=== PATIENT | female | born 1955 | race Two or more races ===

== ENCOUNTER 2020-09-24 11:17 | Inpatient (IN) | payer OTHER ==
[~2020-09-24] VITALS: Ht 162.6 cm; Wt 81.0 kg
[2020-09-24 13:38] LABS: Basophils # (auto) 0 10 ^3/uL (0-0.2); Basophils % (auto) 0.2 % (0.0-2.0); Eosinophils # (auto) 0.1 10 ^3/uL (0-0.8); Eosinophils % (auto) 0.8 % (0.0-7.0); Hematocrit 39.8 % (36.0-46.0); Hemoglobin 13.8 g/dL (12.2-16.2); Lymphocytes # (auto) 1.3 10 ^3/uL (0.4-5.4); Lymphocytes % (auto) 16.4 % (10.0-50.0); Mean Corpuscular Hgb Conc. 34.5 g/dL (32.0-36.0); Mean Corpuscular Volume 89.7 fL (80.0-100.0); Monocytes # (auto) 0.9 10 ^3/uL (0-1.3); Monocytes % (auto) 11.5 % (0.0-12.0); Neutrophils # (auto) 5.5 10 ^3/uL (1.6-8.6); Neutrophils % (auto) 71.1 % (37.0-80.0); Nucleated Red Blood Cells % 0.1 %; Platelet Count (auto) 331 10^3/uL (140-450); Red Blood Cells 4.44 10^6/uL (4.0-5.20); Red Cell Distribution Width 13.2 % (11.8-14.3); White Blood Cell 7.7 10^3/uL (4.4-10.8)
[2020-09-24 14:17] LABS: Albumin 2.7 g/dL (3.4-5.0); BUN/Creatinine Ratio 7.6; Calcium 8.1 mg/dL (8.5-10.1); Potassium 3.4 mmol/L (3.5-5.1)
[2020-09-24 14:20] LABS: Bilirubin, Total 0.8 mg/dL (0.2-1.0); Total Protein 6.9 g/dL (6.4-8.2)
[2020-09-24] MEDS ORDERED: REMDESIVIR PER PHARMACY 0 ML IV SCH (14:30)
[2020-09-24] MEDS ORDERED: NITROGLYCERIN 0.4 MG SL TAB SL PRN (14:30)
[2020-09-24] MEDS ORDERED: MORPHINE SULF INJ 2 MG/ML SYRINGE 1ML IV PRN ×2 (14:30→14:45)
[2020-09-24] MEDS ORDERED: TEMAZEPAM 15 MG CAP PO PRN (14:45)
[2020-09-24] MEDS ORDERED: DEXTROSE (50%) 50ML SYRG IV PRN (14:45)
[2020-09-24] MEDS ORDERED: ONDANSETRON HCL 4 MG/2 ML VIAL IV PRN (14:45)
[2020-09-24] MEDS ORDERED: POTASSIUM EFFERVESENT TAB 25 MEQ PO ONE (14:45)
[2020-09-24] MEDS ORDERED: LACTULOSE 20Gm/30ML SOLN PO PRN (14:45)
[2020-09-24] MEDS ORDERED: ACETAMINOPHEN 500 MG TAB PO PRN (14:45)
[2020-09-24] MEDS ORDERED: traMADol HCL 50 MG TAB PO PRN (14:45)
[2020-09-24] MEDS ORDERED: ONDA-144 PO (14:49)
[2020-09-24] MEDS ORDERED: LISI-275 PO (14:49)
[2020-09-24] MEDS ORDERED: CYAN100T7 PO (14:51)
[2020-09-24] MEDS ORDERED: MULT-1018 PO (14:51)
[2020-09-24] MEDS ORDERED: GUAI600T23 PO (14:51)
[2020-09-24 14:54] LABS: CRP High Sensitivity 6.93 mg/dL (< 0.3)
[2020-09-25] MEDS ORDERED: ONDANSETRON ODT 4 MG TAB PO ONE (05:45)
[2020-09-25 06:20] LABS: Basophils # (auto) 0 10 ^3/uL (0-0.2); Basophils % (auto) 0.3 % (0.0-2.0); Eosinophils # (auto) 0.1 10 ^3/uL (0-0.8); Eosinophils % (auto) 1.7 % (0.0-7.0); Hematocrit 40.5 % (36.0-46.0); Hemoglobin 13.2 g/dL (12.2-16.2); Lymphocytes % (auto) 14.9 % (10.0-50.0); Mean Corpuscular Hemoglobin 29.6 pg (28.0-32.0); Mean Corpuscular Hgb Conc. 32.7 g/dL (32.0-36.0); Mean Corpuscular Volume 90.7 fL (80.0-100.0); Monocytes # (auto) 0.7 10 ^3/uL (0-1.3); Monocytes % (auto) 10.4 % (0.0-12.0); Neutrophils # (auto) 5.1 10 ^3/uL (1.6-8.6); Neutrophils % (auto) 72.7 % (37.0-80.0); Platelet Count (auto) 404 10^3/uL (140-450); Red Blood Cells 4.46 10^6/uL (4.0-5.20); Red Cell Distribution Width 13.5 % (11.8-14.3)
[2020-09-25 06:43] LABS: Potassium 3.3 mmol/L (3.5-5.1)
[2020-09-25 06:49] LABS: BUN/Creatinine Ratio 9.3
[2020-09-25 06:50] LABS: Albumin 2.7 g/dL (3.4-5.0); Bilirubin, Total 0.9 mg/dL (0.2-1.0); Calcium 8.4 mg/dL (8.5-10.1); Total Protein 7.2 g/dL (6.4-8.2)
[2020-09-25] MEDS: ACCU-CHEK COMFORT CURVE STRIP VI SCH ×4 (08:00→18:19)
[2020-09-25] MEDS ORDERED: levoFLOXacin 500MG 100 ML IV SCH (08:00)
[2020-09-25] MEDS ORDERED: DexAMETHasone SOD PHOS 10MG/1ML VIAL INJ IV SCH (10:00)
[2020-09-25] MEDS ORDERED: ZINC SULFATE 220mg CAP or TAB PO SCH (10:00)
[2020-09-25] MEDS: ENOXAPARIN SOD 40 MG/0.4 ML SYRINGE SC SCH ×3 (10:54→21:56)
[2020-09-25] MEDS: CHOLECALCIFEROL (VITD3) 2,000 UNIT CAP PO SCH (11:01)
[2020-09-25] MEDS: ASCORBIC ACID 1,000 MG TAB PO SCH (11:01)
[2020-09-25] MEDS: AZITHROMYCIN 500MG/D5WorNS 250ml IV SCH (11:01)
[2020-09-25] MEDS: ZINC SULFATE 220mg CAP or TAB PO SCH (11:01)
[2020-09-25] MEDS ORDERED: POTASSIUM EFFERVESENT TAB 25 MEQ PO ONE ×2 (11:30)
[2020-09-25] MEDS ORDERED: cefTRIAXone 1GM/50ML D5W 50 ML IV ONE (11:30)
[2020-09-25] MEDS ORDERED: FUROSEMIDE 20 MG/2 ML VIAL IV ONE (11:30)
[2020-09-25] MEDS: DexAMETHasone SOD PHOS 10MG/1ML VIAL INJ IV SCH (11:32)
[2020-09-25] MEDS: BUDESONIDE (INHALATION) 180 MCG IH IN SCH ×2 (13:02→22:27)
[2020-09-25] MEDS ORDERED: REMDESIVIR 200 MG in NS 210ml LOADING DOSE ADULT IV ONE (15:00)
--- NOTE | 2020-09-25 15:20 | NUR ---
Report called in from ER Report called in by ER. Patient arrived shortly after via wheelchair with all belongings with no S/S of SOB or respiratory distress to RM 220B. Patient on 2L NC. HR 78, RR 18, BP 128/67, O2 96%. Instructed on POC and to call for assist PRN. Patient verbalized understanding. Will continue to monitor for changes Q1hr and PRN.
--- NOTE | 2020-09-25 16:51 | NUR ---
Patient in the ER Addendum: 09/25/20 at 1652 by Shae Beal RN RN Amended: Links added.
--- NOTE | 2020-09-25 17:27 | NUR ---
Remdesivir Pre-treatment vitals HR 86, RR 14, BP 138/74, Temp 98.3, O2 97%. Addendum: 09/26/20 at 0732 by Shae Beal RN RN Loading Dose
--- NOTE | 2020-09-25 17:59 | NUR ---
1742 vitals HR, 90, RR 15, BP 127/75, Temp 97.9, O2 95%.
--- NOTE | 2020-09-25 19:30 | NUR ---
Opening Shift Note Assumed care of patient, awake and alert. No S/S of distress/SOB or pain. Pt on 2L nasal cannula saturating at 94% at this time. Safety measures in place, bed in lowest locked position, bed rails raised x2, call light within reach. All needs addressed at this time. Instructed on POC and to call for assist PRN, will continue to monitor for changes Q1hr and PRN.
[2020-09-25 22:04] VITALS: BP 115/67
[2020-09-25] MEDS: ALBUTEROL SULF HFA 90MCG INH 200DOSE IN PRN (22:28)
[2020-09-26 05:00] VITALS: BP 121/74
[2020-09-26 07:06] LABS: Basophils # (auto) 0 10 ^3/uL (0-0.2); Basophils % (auto) 0.2 % (0.0-2.0); Eosinophils # (auto) 0 10 ^3/uL (0-0.8); Lymphocytes % (auto) 17.8 % (10.0-50.0); White Blood Cell 5.6 10^3/uL (4.4-10.8)
[2020-09-26 07:09] LABS: Hematocrit 38.6 % (36.0-46.0); Hemoglobin 12.9 g/dL (12.2-16.2); Mean Corpuscular Hemoglobin 30.1 pg (28.0-32.0); Mean Corpuscular Hgb Conc. 33.5 g/dL (32.0-36.0); Mean Corpuscular Volume 89.8 fL (80.0-100.0); Monocytes # (auto) 0.6 10 ^3/uL (0-1.3); Nucleated Red Blood Cells % 0.1 %; Platelet Count (auto) 516 10^3/uL (140-450); Red Cell Distribution Width 13.4 % (11.8-14.3)
[2020-09-26] MEDS: ALBUTEROL SULF HFA 90MCG INH 200DOSE IN PRN (07:10)
[2020-09-26] MEDS: BUDESONIDE (INHALATION) 180 MCG IH IN SCH ×2 (07:10→21:39)
--- NOTE | 2020-09-26 07:10 | NUR ---
Respiratory note: Please disregard charting for nebulizer treatment. Treatment was given at 0710.
[2020-09-26 07:34] LABS: Albumin 2.7 g/dL (3.4-5.0); Calcium 8.9 mg/dL (8.5-10.1); Potassium 3.6 mmol/L (3.5-5.1)
[2020-09-26 07:37] LABS: Bilirubin, Total 0.6 mg/dL (0.2-1.0); Total Protein 6.8 g/dL (6.4-8.2)
--- NOTE | 2020-09-26 07:45 | NUR ---
Opening Shift Note Assumed care of patient, awake and alert. A/O X 4. No S/S of distress/SOB or pain. Patient on 2L NC. Instructed on POC and to call for assist PRN. Patient verbalized understanding. Safety measures are in place and the call light is within reach of the patient. Will continue to monitor for changes Q1hr and PRN.
[2020-09-26 09:00] VITALS: BP 121/72
[2020-09-26] MEDS: cefTRIAXone 1GM/50ML D5W 50 ML IV SCH (09:30)
[2020-09-26] MEDS: CHOLECALCIFEROL (VITD3) 2,000 UNIT CAP PO SCH (10:00)
[2020-09-26] MEDS: FUROSEMIDE 20 MG/2 ML VIAL IV SCH (10:00)
[2020-09-26] MEDS: ASCORBIC ACID 1,000 MG TAB PO SCH (10:00)
[2020-09-26] MEDS: AZITHROMYCIN 500MG/D5WorNS 250ml IV SCH (10:00)
[2020-09-26] MEDS: POTASSIUM EFFERVESENT TAB 25 MEQ PO SCH (10:00)
[2020-09-26] MEDS: DexAMETHasone SOD PHOS 10MG/1ML VIAL INJ IV SCH (10:00)
[2020-09-26] MEDS: ENOXAPARIN SOD 40 MG/0.4 ML SYRINGE SC SCH ×2 (10:00→21:25)
[2020-09-26] MEDS: ZINC SULFATE 220mg CAP or TAB PO SCH (10:00)
[2020-09-26 13:00] VITALS: BP 115/63
--- NOTE | 2020-09-26 13:43 | NUR ---
Report given, transfer of care Report given to Kandi WISE for a transfer of care.
--- NOTE | 2020-09-26 13:43 | NUR ---
Received Transfer of Care Received transfer of care from BILLIE Lynn. Pt round performed and pt status is stable and pt is resting comfortably. Pt is on 2L/min nc, assumed care of patient, pt is awake and A&OX4. No S/S of distress/SOB or pain. Instructed on POC and to call for assist PRN, call light within reach. Bed is locked, in lowest position, side rails upX2. Will continue to monitor for changes Q1hr and PRN.
[2020-09-26] MEDS: REMDESIVIR 100 MG in SODIUM CHL 0.9% 250 ML IV SCH (15:00)
--- NOTE | 2020-09-26 18:00 | NUR ---
Remdesivir Infusion Pre Remdesivir VS: BP 113/61, 73 NV, 92%, after 15 min infusion: BP 113/64, 68 NV, 93%, post infusion: BP 121/65, 69 NV, 93%. Patient tolerated the medication well.
--- NOTE | 2020-09-26 19:30 | NUR ---
Opening Shift Note Assumed care of patient, awake and alert. No S/S of distress/SOB or pain. Instructed on POC and to call for assist PRN, will continue to monitor for changes Q1hr and PRN.
[2020-09-26 22:00] VITALS: BP 114/63
[2020-09-27] MEDS: ALBUTEROL SULF HFA 90MCG INH 200DOSE IN PRN ×3 (00:05→19:58)
[2020-09-27 05:00] VITALS: BP 122/61
--- NOTE | 2020-09-27 06:00 | NUR ---
pt took a shower, denies SOB/distress
--- NOTE | 2020-09-27 07:16 | NUR ---
closing note endorsed care to Kristel WISE. Resting in bed. No sign of pain/distress at this time.
[2020-09-27] MEDS: BUDESONIDE (INHALATION) 180 MCG IH IN SCH ×2 (07:58→22:22)
--- NOTE | 2020-09-27 08:00 | NUR ---
Opening Shift Note Assumed care of patient, pt is awake and A&OX4. No S/S of distress/SOB or pain. Instructed on POC and to call for assist PRN, call light within reach, bed is locked, in lowest position with side rails upX2. IV on LAC is patent and no s/sx of swelling at the site. Will continue to monitor for changes Q1hr and PRN.
[2020-09-27 09:00] VITALS: BP 129/72
[2020-09-27] MEDS: CHOLECALCIFEROL (VITD3) 2,000 UNIT CAP PO SCH (09:44)
[2020-09-27] MEDS: cefTRIAXone 1GM/50ML D5W 50 ML IV SCH (09:44)
[2020-09-27] MEDS: ZINC SULFATE 220mg CAP or TAB PO SCH (09:45)
[2020-09-27] MEDS: FUROSEMIDE 20 MG/2 ML VIAL IV SCH (09:45)
[2020-09-27] MEDS: DexAMETHasone SOD PHOS 10MG/1ML VIAL INJ IV SCH (09:46)
[2020-09-27] MEDS: POTASSIUM EFFERVESENT TAB 25 MEQ PO SCH (09:47)
[2020-09-27] MEDS: AZITHROMYCIN 500MG/D5WorNS 250ml IV SCH (09:47)
[2020-09-27] MEDS: ASCORBIC ACID 1,000 MG TAB PO SCH (09:47)
[2020-09-27] MEDS: ENOXAPARIN SOD 40 MG/0.4 ML SYRINGE SC SCH ×2 (11:00→21:56)
--- NOTE | 2020-09-27 11:22 | NUR ---
Nutrition Assessment Est energy needs [id number] kcal (20-23 kcal/kg BW 81.2kg) Est protein needs 55-71g (1-1.3g/kg IBW 55kg) Will monitor and reassess prn. Addendum: 09/27/20 at [address] Amended: Links added.
--- NOTE | 2020-09-27 12:00 | NUR ---
MD Daniel at Bedside Dr. Daniel at bedside and discussed plan of care with the patient.
[2020-09-27 13:00] VITALS: BP 120/55
--- NOTE | 2020-09-27 13:00 | NUR ---
Urine Specimen Obtained and Sent Patient's urine specimen was obtained and sent to the lab for urinalysis.
[2020-09-27 13:10] LABS: Urine WBC None Seen /hpf (0 - 5)
[2020-09-27 13:21] LABS: Urine Bacteria NONE SEEN /hpf (None Seen); Urine Blood Negative /uL (Negative); Urine Specific Gravity 1.005 (1.001-1.035)
[2020-09-27] MEDS: REMDESIVIR 100 MG in SODIUM CHL 0.9% 250 ML IV SCH (15:00)
[2020-09-27 17:00] VITALS: BP 114/58
--- NOTE | 2020-09-27 18:00 | NUR ---
Remdesivir Infusion Pre Remdesivir VS: BP 114/58, 62 ND, 96%, after 15 min infusion: BP 118/56, 59 ND, 96%, post infusion: BP 123/62, 62 ND, 95%. Patient tolerated the medication well.
--- NOTE | 2020-09-27 19:07 | NUR ---
Closing Note Endorsed care to night RN. Pt is resting in bed with no s/sx of distress or SOB at this time.
[2020-09-27 22:00] VITALS: BP 115/66
[2020-09-28 05:00] VITALS: BP 117/66
[2020-09-28] MEDS: ALBUTEROL SULF HFA 90MCG INH 200DOSE IN PRN ×2 (06:51→20:51)
[2020-09-28] MEDS: BUDESONIDE (INHALATION) 180 MCG IH IN SCH ×2 (06:51→20:51)
--- NOTE | 2020-09-28 06:51 | NUR ---
Respiratory note: RECEIVED PT ON ROOM AIR SATING 94%. NO RESPIRATORY DISTRESS NOTED. WILL CONTINUE TO MONITOR.
--- NOTE | 2020-09-28 07:30 | NUR ---
Opening Shift Note Assuming care of patient at this time. Patient is awake and alert. Patient denies pain. Patient shows no signs or symptoms of distress or shortness of breath. Bed is locked and lowered with side rails up x2. Instructed patient on the plan of care for today and to call for assistance as needed. Call light within reach. Will continue to round hourly and as needed.
[2020-09-28] MEDS: cefTRIAXone 1GM/50ML D5W 50 ML IV SCH (10:15)
[2020-09-28] MEDS: ASCORBIC ACID 1,000 MG TAB PO SCH (10:30)
[2020-09-28] MEDS: AZITHROMYCIN 500MG/D5WorNS 250ml IV SCH (10:30)
[2020-09-28] MEDS: ZINC SULFATE 220mg CAP or TAB PO SCH (10:30)
[2020-09-28] MEDS: CHOLECALCIFEROL (VITD3) 2,000 UNIT CAP PO SCH (10:30)
[2020-09-28] MEDS: POTASSIUM EFFERVESENT TAB 25 MEQ PO SCH (10:30)
[2020-09-28] MEDS: ENOXAPARIN SOD 40 MG/0.4 ML SYRINGE SC SCH ×2 (10:30→21:32)
[2020-09-28] MEDS: DexAMETHasone SOD PHOS 10MG/1ML VIAL INJ IV SCH (10:45)
[2020-09-28] MEDS: FUROSEMIDE 20 MG/2 ML VIAL IV SCH (10:45)
[2020-09-28] MEDS: REMDESIVIR 100 MG in SODIUM CHL 0.9% 250 ML IV SCH (18:15)
--- NOTE | 2020-09-28 18:15 | NUR ---
Remdesivir Remedesivir started at this time. Blood pressure: 133/71, Pulse : 73.
--- NOTE | 2020-09-28 18:30 | NUR ---
Remdesivir Infusion Blood pressure: 122/62, Pulse 65.
--- NOTE | 2020-09-28 19:15 | NUR ---
Remdesivir Infusion Post Vitals: 124/62, Pulse 65.
[2020-09-28 21:00] VITALS: BP 114/59
[2020-09-29 05:39] VITALS: BP 122/69
[2020-09-29 07:35] LABS: Calcium 8.6 mg/dL (8.5-10.1); Potassium 3.9 mmol/L (3.5-5.1)
[2020-09-29 07:37] LABS: BUN/Creatinine Ratio 36.2
[2020-09-29 08:00] VITALS: BP 127/68
--- NOTE | 2020-09-29 08:00 | NUR ---
RECEIVED PATIENT ALERT AND ORIENTED X4, DIMINISHED LS IN BILATERAL UPPER AND LOWER LUNG LOBES, RR=20 SAT=93 WITH 2L NC, DENIED SOB AND CHEST PAIN, SR R=84 ON TELE MONITOR, ABDOMEN SOFT WITH ACTIVE BS, LAST BM=09/28/20 REPORTED, SKIN INTACT, RADIAL AND PEDAL PULSES PALPABLE, NOT IN DISTRESS DENIED PAIN, RESTING ON BED, HEAD OF BED ELEVATED, BED ON LOW POSITION, RAILS UP X2, CALL LIGHT ON REACH, WILL CONTINUE MONITORING.
[2020-09-29] MEDS: BUDESONIDE (INHALATION) 180 MCG IH IN SCH (08:43)
[2020-09-29] MEDS: ALBUTEROL SULF HFA 90MCG INH 200DOSE IN PRN (08:43)
[2020-09-29] MEDS: cefTRIAXone 1GM/50ML D5W 50 ML IV SCH (10:56)
[2020-09-29] MEDS: ASCORBIC ACID 1,000 MG TAB PO SCH (10:57)
[2020-09-29] MEDS: AZITHROMYCIN 500MG/D5WorNS 250ml IV SCH (10:57)
[2020-09-29] MEDS: ZINC SULFATE 220mg CAP or TAB PO SCH (10:57)
[2020-09-29] MEDS: DexAMETHasone SOD PHOS 10MG/1ML VIAL INJ IV SCH (10:57)
[2020-09-29] MEDS: ENOXAPARIN SOD 40 MG/0.4 ML SYRINGE SC SCH (10:58)
[2020-09-29] MEDS: CHOLECALCIFEROL (VITD3) 2,000 UNIT CAP PO SCH (10:58)
[2020-09-29 12:00] VITALS: BP 120/62
--- NOTE | 2020-09-29 14:00 | NUR ---
NOT IN DISTRESS, DENIED PAIN, AMBULATING TO BR AND IN THE ROOM INDEPENDENTLY, PENDING SS CONSULT FOR HOME O2 AND PENDING D/C HOME TODAY, SS CONTACTED FOR FOLLOW UP, PATIENT ON RA SAT=92 AT THIS MOMENT, WILL CONTINUE MONITORING.
--- NOTE | 2020-09-29 14:15 | NUR ---
TOLOERATING PROVIDED DIET TRAY WELL, AMBULATES TO THE BR AND IN THE ROOM INDEPENDENTLY, NOT IN DISTRESS, DENIED PAIN, WILL CONTINUE MONITORING.
[2020-09-29] MEDS: REMDESIVIR 100 MG in SODIUM CHL 0.9% 250 ML IV SCH (15:29)
--- NOTE | 2020-09-29 15:30 | NUR ---
SAT=93-94% IN RA, DENIED SOB, NOT IN DISTRESS, DR. BARRAZA WAS CONTACTED FOR FOLLOW UP AND UPDATES, WILL D/C HOME WITH OUT O2 ORDERED, WILL CONTINUE MONITORING.
[2020-09-29 15:53] VITALS: BP 103/68
[2020-09-29 16:00] VITALS: BP 125/65
--- NOTE | 2020-09-29 16:32 | NUR ---
SS consult for home oxygen. Contacted Aram and Makenna regarding authorization for oxygen. Due to pt currently at 92% on RA she does not qualify for insurance to cover home oxygen. Makenna adhering to regular guidelines for home oxygen concentrators. Notified nurse and requested notification to physician.
--- NOTE | 2020-09-29 19:02 | NUR ---
D/C INSTRUCTIONS AND EDUCATION PROVIDED, VERBALIZED UNDERSTANDING, PRESCRIPTIONS AND MEDICATION EDUCATION PROVIDED, VERBALIZED UNDERSTANDING, PCP FOLLOW UP APPOINTMENT WITH [facility] WILL BE DONE BY CALLING FROM HOME REPORTED, D/C RT. HAND IV SITE, TOLERATED WELL, NOT IN DISTRESS [id number] PAIN, VS T=98.6 RR=18 SAT=94% IN RA P=72 SS=292/73, NOT IN DISTRESS, DENIED PAIN, D/C HOME ON WC ACCOMPANIED BY , TOOK ALL BELONGINGS AND LEFT NOTHING BEHIND.
== END 2020-09-29 19:00 | disposition home or self-care (01) | DRG 177 ==
LOC: ER 11:17 → TELE 11:18 → TELE-CENTR 09-25 15:04 → TELE-WESTW 09-28 18:09
PROVIDERS: ADMIT Internal Medicine; ATTEND Internal Medicine
PROC: XW033E5 Introduction of Remdesivir Anti-infective into Peripheral Vein, Percutaneous Approach, New Technology Group 5 (ICD-10-PCS; principal; 2020-09-24)
DX: U07.1 COVID-19 (principal); J12.89 Other viral pneumonia; J96.01 Acute respiratory failure with hypoxia; R73.9 Hyperglycemia, unspecified; E87.6 Hypokalemia; I10 Essential (primary) hypertension; E66.9 Obesity, unspecified; Z85.528 Personal history of other malignant neoplasm of kidney; Z79.82 Long term (current) use of aspirin; Z90.5 Acquired absence of kidney; Z88.5 Allergy status to narcotic agent
CPT/HCPCS: 36415; 36600; 71045; 80048; 80053; 81001; 82728; 82805; 82962; 83036; 83605; 83615; 83735; 84443; 84484; 85025; 86141; 87040; 87426; 94640; G0378; J0696; J1100; J1956; J2405; Q0162